=== PATIENT | female | born 1985 | race Caucasian/White ===

== ENCOUNTER → 2016-12-17 | Outpatient (CLI) | payer BC | LOC: COL.PUL 12:50 | DX: R06.02 Shortness of breath (principal); Z87.891 Personal history of nicotine dependence | CPT/HCPCS: J7674 ==

== ENCOUNTER → 2018-12-17 | Outpatient (CLI) | payer BC ==
[2018-12-17 11:28] LABS: SYNOVIAL FL. MONONUCLEAR 93.5 % (0-75); SYNOVIAL FLUID RBC 13000 /mm3 (0-0); SYNOVIAL FLUID WBC 6117 /mm3 (200-600)
[2018-12-17 11:34] LABS: SYNOVIAL FLUID APPEARANCE CLOUDY; SYNOVIAL FLUID COLOR OTHER
== END ==
LOC: ZCOL.LAB 10:21
PROVIDERS: Orthopaedic Surgery
DX: M25.461 Effusion, right knee (principal)

== ENCOUNTER → 2019-12-22 | Outpatient (CLI) | payer BC | LOC: MC.RAD 13:44 | DX: N63.10 Unspecified lump in the right breast, unspecified quadrant (principal); R92.1 Mammographic calcification found on diagnostic imaging of breast ==

== ENCOUNTER → 2019-12-28 | Outpatient (CLI) | payer BC | LOC: MC.RAD 07:43 | DX: N63.10 Unspecified lump in the right breast, unspecified quadrant (principal); N63.31 Unspecified lump in axillary tail of the right breast; R92.1 Mammographic calcification found on diagnostic imaging of breast ==

== ENCOUNTER 2021-11-16 19:30 | Day surgery (SDC) | payer OTHER ==
[~2021-11-16] VITALS: Ht 154.9 cm; Wt 56.8 kg
[2021-11-16] VITALS (8 sets, daily range): BP systolic 99–116; BP diastolic 35–82; PULSE 60–70
--- NOTE | 2021-11-16 22:44 | NUR ---
PATIENT STILL IN SURGERY AT THIS TIME.
--- NOTE | 2021-11-16 22:44 | NUR ---
PATIENT NOT RETURNED FROM SURGERY AT THIS TIME.
--- NOTE | 2021-11-16 23:57 | NUR ---
PATIENT IS RESTING WHEN THIS NURSE ARRIVES TO ROOM. AWAKENS TO VOICE, DENIES PAIN, NEEDS OR CONCERNS.
[2021-11-17 00:01] VITALS: BP 104/65; PULSE 75; TEMP 98.1
[2021-11-17 04:32] VITALS: BP 93/51; PULSE 69; TEMP 97.9
--- NOTE | 2021-11-17 05:58 | NUR ---
PATIENT HAD AN UNEVENTFUL NIGHT WITHOUT COMPLAINTS OF PAIN. PATIENT HAS BEEN TOLERATING DRINKING WATER AND ICE CHIPS AND REFUSED ADVANCEMENT OF DIET LAST EVENING. PATIENT ENCOUARGED TO KEEP ADEQUATE WATER INTAKE. PATIENT ENCOURAGED TO CALL WITH NEEDS OR COCERNS. PATIENT STATES UNDERSTANDING.
[2021-11-17 07:09] VITALS: BP 102/58; PULSE 70; TEMP 97.8
[2021-11-17] MEDS ORDERED: LEVAQUIN 5500 MG/TA1 PO (07:12)
[2021-11-17] MEDS ORDERED: PYRIDIUM 100MG100 MG PO (07:12)
--- NOTE | 2021-11-17 10:40 | NUR ---
PATIENT WAS GIVEN ALL DISCHARGE INSTRUCTINS AND EDUCATION. REVIEWED NEW MEDS AND EDUCATION WITH PATIENT THOROUGHLY. IV DISCONTINUED. PATIENT WALKED OUT BY PCT WITH PATIENTS FRIEND. PATIENT DISCHARGED IN [facility].
== END 2021-11-17 11:00 | disposition home or self-care (01) ==
LOC: MEDICAL 19:30 → SDCO 19:30
DX: N13.2 Hydronephrosis with renal and ureteral calculous obstruction (principal); Z87.891 Personal history of nicotine dependence; Z85.3 Personal history of malignant neoplasm of breast
CPT/HCPCS: OP; C1769; C2617; J0690; J0696; J1100; J2405; J2704; J3010; J7120; Q9966